=== PATIENT | male | born 1970 | race Asian ===

== ENCOUNTER 2021-02-18 06:31 | Day surgery (SDC) | payer OTHER, SELFPAY ==
[~2021-02-18] VITALS: Ht 167.6 cm; Wt 54.4 kg
[2021-02-18] MEDS ORDERED: LIDOCAINE 2% 100 MG/5 ML UJET TP ONE ×2 (08:27→08:40)
[2021-02-18] MEDS ORDERED: diphenhydrAMINE 50 MG/ML VIAL ONE (08:27)
[2021-02-18] MEDS ORDERED: fentaNYL citrate 0.05 MG/ML VIAL ONE (08:27)
[2021-02-18] MEDS ORDERED: MIDAZOLAM 5 MG/5 ML VIAL ONE (08:27)
[2021-02-18] MEDS ORDERED: MIDAZOLAM 2 MG/2 ML VIAL IVP ONE (08:40)
[2021-02-18] MEDS ORDERED: fentaNYL citrate 0.05 MG/ML VIAL IVP ONE (08:40)
== END 2021-02-18 09:25 | disposition home or self-care (01) ==
LOC: MMU 06:31 → MDS 06:31
PROVIDERS: ATTEND Internal Medicine Gastroenterology
DX: Z12.11 Encounter for screening for malignant neoplasm of colon (principal); K63.5 Polyp of colon; B18.1 Chronic viral hepatitis B without delta-agent; Z79.899 Other long term (current) drug therapy; Z20.822 Contact with and (suspected) exposure to COVID-19
CPT/HCPCS: 45385; 87426; 88305; J2250; J3010; J1200